=== PATIENT | male | born 1970 | race Caucasian/White ===

== ENCOUNTER 2021-04-27 16:21 | Emergency (ER) | payer BC ==
[2021-04-27 16:25] VITALS: BP 153/78; PULSE 92; TEMP 98.4
[2021-04-27] MEDS ORDERED: DIPH,PERTUS(ACELL)TETVAC-LF 0.5 ML VIAL IM ONE (16:45)
[2021-04-27] MEDS ORDERED: LIDOCAINE 1%-EPI 1:100,000 20 ML VIAL SQ STA (16:45)
--- NOTE | 2021-04-27 17:10 | XR ---
EXAMINATION TYPE: XR forearm RT DATE OF EXAM: 04/27/2021 COMPARISON: NONE HISTORY: Forearm laceration TECHNIQUE: 2 views FINDINGS: Radius and ulna appear intact. I see no fracture nor dislocation. Joint spaces are fairly n ormal. IMPRESSION: Negative right forearm exam.
[2021-04-27] MEDS ORDERED: BACITRACIN OINT 1 EACH PACKET TOPICAL STA (18:13)
[2021-04-27] MEDS ORDERED: CEPHALEXIN 500MG STARTER PACK 4 CAP BTL PO STA (18:16)
--- NOTE | 2021-04-27 18:17 | ED ---
General Adult HPI - General Chief complaint: Wound/Laceration Stated complaint: arm lac Time Seen by Provider: 04/27/21 16:30 Source: patient Mode of arrival: ambulatory Limitations: no limitations - History of Present Illness Initial comments: 50-year-old male presents to the emergency room for a chief complaint of laceration to the right forearm. Patient was putting in a fire pit when he cut his arm. Patient unsure on tetanus immunization status. Patient states he can see his tendons. He denies any loss of range of motion in the hand or wrist. Denies any weakness in the hand or wrist.Patient has no other complaints at this time including shortness of breath, chest pain, abdominal pain, nausea or vomiting, headache, or visual changes. - Related Data Previous Rx's Medication Instructions Recorded Cephalexin [Keflex] 500 mg PO Q6HR 10 Days #40 cap 04/27/21 Allergies Allergy/AdvReac Type Severity Reaction Status Date / Time No Known Allergies Allergy Verified 04/27/21 16:25 Review of Systems ROS Statement: Those systems with pertinent positive or pertinent negative responses have been documented in the HPI. ROS Other: All systems not noted in ROS Statement are negative. Past Medical History Past Medical History: No Reported History History of Any Multi-Drug Resistant Organisms: None Reported Past Surgical History: No Surgical Hx Reported Smoking Status: Never smoker Past Alcohol Use History: None Reported Past Drug Use History: None Reported General Exam Limitations: no limitations General appearance: alert, in no apparent distress Head exam: Present: atraumatic, normocephalic, normal inspection Eye exam: Present: normal appearance, PERRL, EOMI. Absent: scleral icterus, conjunctival injection, periorbital swelling ENT exam: Present: normal exam, mucous membranes moist Neck exam: Present: normal inspection. Absent: tenderness, meningismus, lymphadenopathy Respiratory exam: Present: normal lung sounds bilaterally. Absent: respiratory distress, wheezes, rales, rhonchi, stridor Cardiovascular Exam: Present: regular rate, normal rhythm, normal heart sounds. Absent: systolic murmur, diastolic murmur, rubs, gallop, clicks Extremities exam: Present: full ROM (Full range of motion of all digits of the right hand. Full flexion of the right wrist. Patient able to make okay sign and abductor and adductor all fingers.), normal capillary refill (Capillary ref ill less than 2 seconds, radial pulse 2+ right upper extremity.), other (3 cm laceration on the mid forearm anterior aspect, able to see tendon in mid forearm, suspect palmaris longus. Small laceration noted, this is not through and through on the tendon.) Course Vital Signs 04/27/21 16:23 Temperature 98.4 F Pulse Rate 92 Respiratory 18 Rate Blood Pressure 153/78 O2 Sat by Pulse 98 Oximetry Procedures - Laceration Laceration #1 Consent Obtained: verbal consent Indication: laceration Site: upper extremity Size (cm): 3 Description: linear Depth: involves tendon Anesthetic Used: lidocaine 1%, with epi Anesthesia Technique: local infiltration Amount (mls): 3 Pre-repair: wound explored, irrigated extensively Type of Sutures: nylon (6), vicryl (2) Size of Sutures: 4-0 (6) Number of Sutures: 6 Technique: simple, interrupted Patient Tolerated Procedure: well, no complications - Orthopedic Splinting/Casting Injury #1 Side: left Upper Extremity Injury Location: elbow Upper Extremity Immobilizer: volar splint Additional Comments: NV intact Medical Decision Making - Medical Decision Making Laceration was repaired using simple interrupted sutures. I did have to put in an observable suture given there was a small arterial bleeding that did not resolve with lidocaine with epi or pressure. Patient does have slight tendon laceration however this is not ruptured. He has full range of motion in all digits of the right hand. Neurovascular status intact. Patient was splinted in a volar splint. He was started on Keflex. I did discuss this case with orthopedics Dr Cage who agrees with this care plan. He will return here for any worsening symptoms. He will otherwise follow-up with orthopedics. Disposition Clinical Impression: Laceration, Flexor tendon laceration of forearm with open wound Narrative: Partial tendon laceration Disposition: HOME SELF-CARE Condition: Good Instructions (If sedation given, give patient instructions): Care For Your Stit ches (ED), Laceration (ED) Additional Instructions: Please keep the area clean. Apply antibiotic ointment twice daily. Keep splint dry and in place. Follow-up with orthopedics on wednesday. Return to the emergency room for any worsening symptoms. Have sutures removed in 7-10 days. Prescriptions: Cephalexin [Keflex] 500 mg PO Q6HR 10 Days #40 cap Is patient prescribed a controlled substance at d/c from ED?: No Referrals: Norman Chin MD [Primary Care Provider] - 1-2 days Jarrell Cage MD [STAFF PHYSICIAN] - 1-2 days Time of Disposition: 18:13
[2021-04-27 18:37] VITALS: RESP 17
== END 2021-04-27 18:37 | disposition home or self-care (01) ==
LOC: EC 16:21
DX: S56.221A Laceration of other flexor muscle, fascia and tendon at forearm level, right arm, initial encounter (principal); W45.8XXA Other foreign body or object entering through skin, initial encounter; Z23 Encounter for immunization
CPT/HCPCS: 12002; 90715; 96372; 99283